=== PATIENT | male | born 1975 | race Caucasian/White ===

== ENCOUNTER 2019-02-23 11:53 | Emergency (ER) | payer OTHER ==
[~2019-02-23] VITALS: Ht 177.8 cm; Wt 77.1 kg
[2019-02-23 12:00] VITALS: BP 169/85
[2019-02-23] MEDS ORDERED: LIDOCAINE 1%-EPI 1:100,000 20 ML VIAL ONE (12:31)
[2019-02-23] MEDS ORDERED: BENZOIN COMPOUND TINCT 60 ML BOTTLE ONE (12:43)
[2019-02-23] MEDS: LIDOCAINE 1%-EPI 1:100,000 50 ML VIAL IJ ONE (12:44)
== END 2019-02-23 14:05 | disposition home or self-care (01) ==
LOC: ER 11:56
DX: S51.812A Laceration without foreign body of left forearm, initial encounter (principal); W26.8XXA Contact with other sharp object(s), not elsewhere classified, initial encounter; Y93.89 Activity, other specified; Y92.89 Other specified places as the place of occurrence of the external cause; Y99.8 Other external cause status
CPT/HCPCS: 12032; 99284; A6402 ×2; A6403; J3490 ×2